=== PATIENT | male | born 1975 | race Caucasian/White ===

== ENCOUNTER 2024-09-11 14:01 | Emergency (ER) | payer OTHER ==
[~2024-09-11] VITALS: Ht 177.8 cm; Wt 91.0 kg
[2024-09-11 14:15] VITALS: O2SAT 100
[2024-09-11 15:04] LABS: BASOPHILS % 0.7 % (0.0-2.0); HEMATOCRIT. 44.4 % (42.0-52.0); HEMOGLOBIN. 15.6 g/dL (14.0-18.0); LYMPHOCYTES % 33.7 % (20.0-50.0); MEAN CORPUSCULAR HEMOGLOBIN 30.5 pg (28.0-32.0); MEAN CORPUSCULAR HGB CONC 35.2 g/dL (31.0-37.0); MEAN CORPUSCULAR VOLUME 86.6 fL (80.0-94.0); MEAN PLATELET VOLUME 8.7 fl (7.4-10.4); MONOCYTES % 9.9 % (2.0-8.0); NEUTROPHILS % 52.7 % (40.0-76.0); PLATELET 211 x1000/uL (130-400); RED BLOOD CELL COUNT 5.13 mill/uL (4.7-6.1); RED CELL DISTRIBUTION WIDTH 13.2 % (11.6-14.6)
[2024-09-11 15:13] LABS: CHLORIDE 106 mEq/L (98-107); POTASSIUM 3.3 mEq/L (3.5-5.1); SODIUM 140 mEq/L (136-145)
[2024-09-11 15:14] LABS: CALCIUM 9.3 mg/dL (8.7-10.4); CARBON DIOXIDE 27 mEq/L (21-32)
[2024-09-11] MEDS: HYDRALAZINE 20MG/ML VIAL IV ONE (15:17)
[2024-09-11 15:19] LABS: CREATININE 1.3 mg/dL (0.6-1.3); GLUCOSE 110 mg/dL (70-105); UREA NITROGEN BLOOD 12 mg/dL (9-23)
[2024-09-11 15:34] LABS: TROPONIN I HIGH SENSITIVITY < 4 ng/L (3.0-53)
[2024-09-11] MEDS: LABETALOL 5MG/ML 4ML INJ IV ONE (16:28)
[2024-09-11 18:30] VITALS: TEMP 36.4
[2024-09-11] MEDS ORDERED: AMLO5TAB88 MT (21:46)
[2024-09-11] MEDS: POTASSIUM CHLORIDE 20MEQ TABLET SR PO ONE (21:55)
[2024-09-11 21:57] VITALS: BP 163/107; PULSE 80; RESP 15; O2SAT 98
== END 2024-09-11 22:05 | disposition home or self-care (01) ==
LOC: ER 14:01
DX: I16.0 Hypertensive urgency (principal)
CPT/HCPCS: 80048; 85025; 84484; 36415; 71045; 93005; 96374; 96375; 99285; J0360; J3490; Z7610 ×2